=== PATIENT | male | born 1995 | race Two or more races ===

== ENCOUNTER 2023-03-05 19:10 | Emergency (ER) | payer MEDICAID, OTHER ==
[~2023-03-05] VITALS: Ht 170.2 cm; Wt 94.8 kg
[2023-03-05] MEDS ORDERED: chlorproMAZINE HCL 25 MG/1 ML AMP IM ONE (20:30)
[2023-03-05 21:31] VITALS: BP 100/56; PULSE 60; RESP 18; TEMP 99; O2SAT 97
== END 2023-03-05 21:34 | disposition home or self-care (01) ==
LOC: ER 19:10 → EDSEX 19:10 → ER 21:34
DX: R06.6 Hiccough (principal); R10.13 Epigastric pain; J45.909 Unspecified asthma, uncomplicated
CPT/HCPCS: 96372; 99283; J3230